=== PATIENT | female | born 1960 | race Caucasian/White ===

== ENCOUNTER → 2016-11-08 | Outpatient (CLI) | payer MEDICAID ==
--- NOTE | 2016-11-08 20:14 | CR ---
EXAM DATE: 11/08/16 PATIENT'S AGE: 56 Patient: EMANUEL ELIZABETH Facility: [place], [place] Site . Site : 1960 Study: XRay Chest [id number]/12/2017 9:20:20 AM Ordering Physician: Olesya Fregoso Final Report: INDICATION: Bronchitis. Technique: Two view chest. Findings: The heart and mediastinum are normal in size and configuration. The pulmonary vessels are normal. The lungs are clear. No pleural fluid. No acute bony abnormalities. Impression: No acute chest disease. Dictated by Ramos Benavides MD @ Nov 08 2016 9:48AM (Electronic Signature) Report Signed by Proxy. JENNA
== END ==
LOC: MW.CHOBGYN 09:03
PROVIDERS: ATTEND Nurse Practitioner Women's Health
DX: J40 Bronchitis, not specified as acute or chronic (principal)
CPT/HCPCS: 71020; 71020-26

== ENCOUNTER 2016-12-01 09:31 | Emergency (ER) | payer MEDICAID ==
--- NOTE | 2016-12-01 09:58 | EDM.PDOC ---
ED HPI GENERAL MEDICAL PROBLEM - General Chief Complaint: Eye Problems Stated Complaint: SWOLLEN RIGHT EYE Time Seen by Provider: 12/01/16 09:56 - History of Present Illness INITIAL COMMENTS - FREE TEXT/NARRATIVE: HISTORY AND PHYSICAL: History of present illness: Patient is a 56-year-old female presents with concern of presumptive insect bite to her right face she had similar episodes in the past for shakeout exaggerated swelling related to insect bites. This was resulted with periorbital swelling and presumptively occurred when fishing yesterday has been no trouble swallowing no shortness of breath there's been no erythema no nausea vomiting there is no globe involvement no visual disturbance no fever no chills Review of systems: As per history of present illness and below otherwise all systems reviewed and negative. Past medical history: As per history of present illness and as reviewed below otherwise noncontributory. Surgical history: As per history of present illness and as reviewed below otherwise noncontributory. Social history: No reported history of drug or alcohol abuse. Family history: As per history of present illness and as reviewed below otherwise noncontributory. Physical exam: HEENT: Atraumatic, normocephalic, pupils reactive, negative for conjunctival pallor or scleral icterus, mucous membranes moist, throat clear, neck supple, nontender, trachea midline. Periorbital swelling noted without erythema warmth fluctuance or tenderness globe is uninvolved Lungs: Clear to auscultation, breath sounds equal bilaterally, chest nontender. Heart: S1S2, regular, negative for clicks, rubs, or JVD. Abdomen: Soft, nondistended, nontender. Negative for masses or hepatosplenomegaly. Negative for costovertebral tenderness. Pelvis: Stable nontender. Genitourinary: Deferred. Rectal: Deferred. Extremities: Atraumatic, negative for cords or calf pain. Neurovascular unremarkable. Neuro: Awake, alert, oriented. Cranial nerves II through XII unremarkable. Cerebellum unremarkable. Motor and sensory unremarkable throughout. Exam nonfocal. Diagnostics: None Therapeutics: None Impression: #1 right periorbital swelling presumptive insect bite right face Definitive disposition and diagnosis as appropriate pending reevaluation and review of above. 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 ED EXAM GENERAL W FULL EYE - Physical Exam Exam: See Below (See dictation) Course - Vital Signs Last Recorded V/S: Last Vital Signs Temp 36.7 C 12/01/16 09:37 Pulse 58 L 12/01/16 09:37 Resp 16 12/01/16 09:37 BP 154/86 H 12/01/16 09:37 Pulse Ox 96 12/01/16 09:37 Departure - Departure Time of Disposition: 09:58 Disposition: Home, Self-Care 01 Condition: good Clinical Impression: Insect bite - Discharge Information Forms: ED Department Discharge Additional Instructions: The following information is given to patients seen in the emergency department who are being discharged to home. This information is to outline your options for follow-up care. We provide all patients seen in our emergency department with a follow-up referral. The need for follow-up, as well as the timing and circumstances, are variable depending upon the specifics of your emergency department visit. If you don't have a primary care physician on staff, we will provide you with a referral. We always advise you to contact your personal physician following an emergency department visit to inform them of the circumstance of the visit and for follow-up with them and/or the need for any referrals to a consulting specialist. The emergency department will also refer you to a specialist when appropriate. This referral assures that you have the opportunity for followup care with a specialist. All of these measure are taken in an effort to provide you with optimal care, which includes your followup. Under all circumstances we always encourage you to contact your private physician who remains a resource for coordinating your care. When calling for followup care, please make the office aware that this follow-up is from your recent emergency room visit. If for any reason you are refused follow-up, please contact the [facility] emergency department at and asked to speak to the emergency department charge nurse. Denisse as directed Medrol as prescribed follow up primary medical doctor one to 2 days return as needed as discussed
[2016-12-01 10:09] VITALS: BP 137/87
== END 2016-12-01 10:05 | disposition home or self-care (01) ==
LOC: MW.ED 09:31
DX: S00.261A Insect bite (nonvenomous) of right eyelid and periocular area, initial encounter (principal); J44.9 Chronic obstructive pulmonary disease, unspecified; F17.210 Nicotine dependence, cigarettes, uncomplicated; W57.XXXA Bitten or stung by nonvenomous insect and other nonvenomous arthropods, initial encounter
CPT/HCPCS: 99281; 99282

== ENCOUNTER 2019-05-04 11:34 | Emergency (ER) | payer MEDICAID, OTHER ==
[2019-05-04] MEDS ORDERED: Diphtheria,Pertussis(Acell),Tetanus Vaccine 0.5 ML Syringe IM ONE (11:37)
[2019-05-04] MEDS ORDERED: Lidocaine 1% PF 2 ML SDV INJECT ONE (11:37)
--- NOTE | 2019-05-04 11:39 | EDM.PDOC ---
ED HPI GENERAL MEDICAL PROBLEM - General Stated Complaint: CUT LEFT HAND Time Seen by Provider: 05/04/19 11:38 Source of Information: Reports: Patient History Limitations: Reports: No Limitations - History of Present Illness INITIAL COMMENTS - FREE TEXT/NARRATIVE: HISTORY AND PHYSICAL: History of present illness: Patient is a 58-year-old female who presents to the emergency room today with complaints of a laceration to her right fifth digit. She states she was taking out the trash when she had pushed down on the canister, resulting in the laceration. She is unsure of what actually cut her finger but could not get the bleeding to stop and came to the emergency room. She is unsure of her last tetanus update. Offers no other systemic complaints or concerns at this time. Review of systems: As per history of present illness and below otherwise all systems reviewed and negative. Past medical history: As per history of present illness and as reviewed below otherwise noncontributory. Surgical history: As per history of present illness and as reviewed below otherwise noncontributory. Social history: See social history for further information Family history: As per history of present illness and as reviewed below otherwise noncontributory. Physical exam: General: Well-developed and well-nourished 58-year-old female. Alert and oriented. Nontoxic appearing and in no acute distress. HEENT: Atraumatic, normocephalic, pupils equal and reactive bilaterally, negative for conjunctival pallor or scleral icterus, mucous membranes moist, trachea midline. No drooling or trismus noted. No meningeal signs. No hot potato voice noted. Lungs: Clear to auscultation, breath sounds equal bilaterally, chest nontender. Heart: S1S2, regular rate and rhythm without overt murmur Abdomen: Soft, nondistended, nontender. Skin: 1 cm laceration to the right lateral 5th digit. Otherwise skin intact, warm, dry. No lesions or rashes noted. Extremities: See SKIN for details, moves all extremities per self without difficulty or deficits, negative for cords or calf pain. Neurovascular unremarkable. Neuro: Awake, alert, oriented. Cranial nerves II through XII unremarkable. Cerebellum unremarkable. Motor and sensory unremarkable throughout. Exam nonfocal. Notes: 1% lidocaine was used to anesthetize the area. Chlorhexidine and wound wash were used for cleansing. Usual and customary procedures were followed for suture placement. 4-0 nylon, #2 interrupted sutures were placed. Patient tolerated well. Supportive care measures were reviewed and discussed. Voices understanding and is agreeable to plan of care. Denies any further questions or concerns at this time. Diagnostics: None Therapeutics: Lidocaine, wound care, Tdap Prescription: None Impression: Laceration Plan: 1. Keep the area clean and dry. Continue to monitor for signs of infection. Sutures to be removed in 7-10 days. 2. Tylenol and/or ibuprofen as needed for pain management. 3. Please follow-up with your primary care provider in the next 1-2 days. Return to the ED as needed and as discussed. Definitive disposition and diagnosis as appropriate pending reevaluation and review of above. 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 ED EXAM, SKIN/RASH Exam: See Below (See dictation) ED SKIN PROCEDURES - Laceration/Wound Repair 5th right digit Appearance: Subcutaneous, Linear Anesthetic Type: Local Local Anesthesia - Lidocaine (Xylocaine): 1% Plain Local Anesthetic Volume: 1cc Skin Prep: Chlorhexidine (Hibiciens), Saline Saline Irrigation (cc's): 25 Exploration/Debridement/Repair: Wound Explored, In a Bloodless Field, No Foreign Material Found Closed with: Sutures Lac/Wound length In cm: 1 Suture Size: 4-0 # of Sutures: 2 Suture Type: Nylon, Interrupted, Simple Drain Placement: No Sterile Dressing Applied: Provider Tetanus Status Addressed: Yes Complications: No Course - Vital Signs Last Recorded V/S: Last Vital Signs Temp 97.2 F 05/04/19 11:38 Pulse 79 05/04/19 11:38 Resp 18 05/04/19 11:38 BP 162/92 H 05/04/19 11:38 Pulse Ox 98 05/04/19 11:38 - Orders/Labs/Meds Orders: Active Orders 24 hr Category Date Time Status Vaccines to be Administered [RC] PER UNIT ROUTINE Care 05/04/19 11:37 Ordered Meds: Medications Discontinued Medications Generic Name Dose Route Start Last Admin Trade Name Ebony PRN Reason Stop Dose Admin Diphtheria/Tetanus/Acell Pertussis 0.5 ml 05/04/19 11:37 Adacel IM 05/04/19 11:38 .ONCE ONE Lidocaine HCl 2 ml 05/04/19 11:37 05/04/19 11:44 Xylocaine-Mpf 1% INJECT 05/04/19 11:38 2 ml ONETIME ONE Administration Departure - Departure Time of Disposition: 12:01 Disposition: Home, Self-Care 01 Clinical Impression: Laceration - Discharge Information Instructions: Laceration Care, Adult, [id number], Stitches, [place], or Adhesive Wound Closure, Eyro-cy-Iqoy Referrals: PCP,Unobtain [Ordering Only Provider] - Forms: ED Department Discharge Additional Instructions: The following information is given to patients seen in the emergency department who are being discharged to home. This information is to outline your options for follow-up care. We provide all patients seen in our emergency department with a follow-up referral. The need for follow-up, as well as the timing and circumstances, are variable depending upon the specifics of your emergency department visit. If you don't have a primary care physician on staff, we will provide you with a referral. We always advise you to contact your personal physician following an emergency department visit to inform them of the circumstance of the visit and for follow-up with them and/or the need for any referrals to a consulting specialist. The emergency department will also refer you to a specialist when appropriate. This referral assures that you have the opportunity for follow-up care with a specialist. All of these measure are taken in an effort to provide you with optimal care, which includes your follow-up. Under all circumstances we always encourage you to contact your private physician who remains a resource for coordinating your care. When calling for follow-up care, please make the office aware that this follow-up is from your recent emergency room visit. If for any reason you are refused follow-up, please contact the [facility] Emergency Department at and asked to speak to the emergency department charge nurse. [facility] [address] [place] [address] [facility] [address] [place] [id number] 1. Keep the area clean and dry. Continue to monitor for signs of infection. Sutures to be removed in 7-10 days. 2. Tylenol and/or ibuprofen as needed for pain management. 3. Please follow-up with your primary care provider in the next 1-2 days. Return to the ED as needed and as discussed. - My Orders Last 24 Hours: My Active Orders 05/04/19 11:37 Vaccines to be Administered [RC] PER UNIT ROUTINE - Assessment/Plan Last 24 Hours: My Active Orders 05/04/19 11:37 Vaccines to be Administered [RC] PER UNIT ROUTINE
[2019-05-04 12:01] VITALS: BP 149/78; PULSE 61
== END 2019-05-04 12:09 | disposition home or self-care (01) ==
LOC: MW.ED 11:34
DX: S61.216A Laceration without foreign body of right little finger without damage to nail, initial encounter (principal); J44.9 Chronic obstructive pulmonary disease, unspecified; Z23 Encounter for immunization; W45.8XXA Other foreign body or object entering through skin, initial encounter; Y93.89 Activity, other specified
CPT/HCPCS: 12001; 90471; 90715; 99282; J2001

== ENCOUNTER 2019-05-13 13:10 | Emergency (ER) | payer OTHER ==
[2019-05-13 14:43] VITALS: BP 139/77; PULSE 63
== END 2019-05-13 13:21 | disposition left against medical advice (07) ==
LOC: MW.ED 13:10
DX: Z53.21 Procedure and treatment not carried out due to patient leaving prior to being seen by health care provider (principal)